=== PATIENT | male | born 1960 | race African-American/Black ===

== ENCOUNTER 2020-04-09 19:37 | Emergency (ER) | payer OTHER ==
[2020-04-09 20:03] VITALS: TEMP 98.8; BMI 19.3
--- NOTE | 2020-04-09 20:58 | PDOC ---
Attending Attestation - Resident Resident Name: Abhay Aguirre - ED Attending Attestation I have performed the following: I have examined & evaluated the patient, The case was reviewed & discussed with the resident, I agree w/resident's findings & plan - HPI HPI: 04/09/20 20:46 see resident hpi - Physicial Exam PE: 04/09/20 20:46 see resident exam - Critical Care Time Total Critical Care Time: 90 Critical Care Statement: The care of this patient involved high complexity decision making to prevent further life threatening deterioration of the patient's condition and/or to evaluate & treat vital organ system(s) failure or risk of failure. - Medical Decision Making 04/09/20 20:48 59-year-old male sent from [facility] for recent fall and evaluation of facial and arm pain Patient states he was seen at [facility] post fall but cannot remember which imaging was done He has abrasions to the right face on exam Plan for CT scan of the head cervical spine facial bones chest abdomen and pelvis for evaluation of possible traumatic injury Pending results will reevaluate for disposition 04/10/20 01:01CT scans revealed a displaced right lens adjacent to the retina Patient accepted to [facility] for ophthalmologic evaluation Discharge - Discharge Information Problems reviewed: Yes Clinical Impression/Diagnosis: Fall, Blurry vision, Eye pain, Lens dislocation Condition: Guarded Disposition: TRANSFER ACUTE CARE/OTHER HOSP - Follow up/Referral - Patient Discharge Instructions - Post Discharge Activity
--- NOTE | 2020-04-09 21:07 | PDOC ---
History of Present Illness - General Chief Complaint: Injury Stated Complaint: FALL Time Seen by Provider: 04/09/20 20:27 - History of Present Illness Initial Comments: 59 YOM no history presents with blurry vision, head and face pain, bilateral arm and leg pain since 4 days. Patient reports that 4 days prior to arrival he fell while walking down a flight of stairs. He fell 10 stairs, lost consciousness for one hour, woke up and screamed for help until someone called 911. He was brought to [facility]. Received Head CT and was subsequently discharged. Patient unsure of CT scan results. Does confirm that he received covid swab which he reports was negative. He reports that he is unable to care for himself due to pain. he is also unable to see from his right eye and finds it painful when he moves his eyes. He also reports some chills and diarrhea however denies N/V, cp, sob, fever, recent sick contacts or recent travel. No blood in urine, no blood in stool. Constitutional: No Weight Change, No Fever, + Chills, No Night Sweats, No Fatigue, No Malaise ENT/Mouth: No Hearing Changes, No Ear Pain, No Nasal Congestion, No Sinus Pain, No Hoarseness, No sore throat, No Rhinorrhea, No Swallowing Difficulty Eyes: + Eye Pain, + Swelling, + Redness, No Foreign Body, No Discharge, + Vision Changes Cardiovascular: No Chest Pain, No SOB, No PND, No Dyspnea on Exertion, No Orthopnea, No Claudication, No Edema, No Palpitations Respiratory: No Cough, No Sputum, No Wheezing, No Smoke Exposure, No Dyspnea Gastrointestinal: No Nausea, No Vomiting, + Diarrhea, No Constipation, No Pain, No Heartburn, No Anorexia, No Dysphagia, No Hematochezia, No Melena, No Flatulence, No Jaundice Genitourinary: No Dysmenorrhea, No DUB, No Dyspareunia, No Dysuria, No Urinary Frequency, No Hematuria, No Urinary Incontinence, No Urgency, No Flank Pain, No Urinary Flow Changes, No Hesitancy Musculoskeletal: + Arthralgias, + Myalgias, No Joint Swelling, No Joint Stiffness, + Back Pain, + Neck Pain, No Injury History Skin: No Skin Lesions, No Pruritis, No Hair Changes, No Breast/Skin Changes, No Nipple Discharge Neuro: + Weakness, No Numbness, No Paresthesias, + Loss of Consciousness, No Syncope, No Dizziness, No Headache, No Coordination Changes, No Recent Falls Psych: No Anxiety/Panic, No Depression, No Insomnia, No Personality Changes, No Delusions, No Rumination, No SI/HI/AH/VH, No Social Issues, No Memory Changes, No Violence/Abuse Hx., No Eating Concerns Heme/Lymph: No Bruising, No Bleeding, No Transfusions History, No Lymphadenopathy Endocrine: No Polyuria, No Polydipsia, No Temperature Intolerance Past History - Medical History Allergies/Adverse Reactions: Allergies Allergy/AdvReac Type Severity Reaction Status Date / Time No Known Allergies Allergy Verified 04/09/20 20:10 Home Medications: Ambulatory Orders NK [No Known Home Medication] 08/27/15 Anemia: No Asthma: No Cancer: No Cardiac Disorders: No CVA: No COPD: No CHF: No Dementia: No Diabetes: No GI Disorders: No Disorders: No HTN: No Hypercholesterolemia: No Kidney Stones: No Liver Disease: No Seizures: No Thyroid Disease: No - Surgical History Abdominal Surgery: No Appendectomy: No Cardiac Surgery: No Cholecystectomy: No Lung Surgery: No Neurologic Surgery: No Orthopedic Surgery: No - Reproductive History Testicular Surgery: No - Psycho-Social/Smoking History Smoking History: Current every day smoker Have you smoked in the past 12 months: Yes Number of Cigarettes Smoked Daily: 20 Information on smoking cessation initiated: No 'Breaking Loose' booklet given: 08/27/15 - Substance Abuse Hx (Audit-C & DAST Scrn) How often the patient has a drink containing alcohol: 2-4 times / month Number of drinks the patient has on a typical day: 5 or 6 How often the patient has six or more drinks on one occasion: Daily or almost daily Score: In Men: 4 or > Positive; In Women: 3 or > Positive: 8 Screen Result (Pos requires Nsg. Audit-10AR): Positive In the last yr the pt used illegal drug/Rx for NonMed reason: Yes Score: Yes response is considered Positive: 1 Screen Result (Positive result requires Nsg. DAST-10): Positive *Physical Exam - Vital Signs Last Vital Signs Temp Pulse Resp BP Pulse Ox 98.8 F 79 20 145/76 97 04/09/20 19:40 04/09/20 19:40 04/09/20 19:40 04/09/20 19:40 04/09/20 19:40 - Physical Exam General Appearance: Yes: Disheveled, Moderate Distress, Cachetic HEENT: positive: Other (patients right eye is red, pain with movement of right eye while tracking finger, decreased visual acuity in right eye, swelling, bruising and abrasions over right orbit and forehead) Neck: positive: Tender, Trachea midline, Normal Thyroid Respiratory/Chest: positive: Lungs Clear, Normal Breath Sounds Cardiovascular: positive: Regular Rhythm, Regular Rate, S1, S2 Gastrointestinal/Abdominal: positive: Normal Bowel Sounds, Tender, Flat, Soft Musculoskeletal: positive: Other (range of motion in right and left arms are limited by pain, 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 Reflexes 2+ in upper and lower extremity bilaterally, negative babinski) ED Treatment Course - LABORATORY CBC & Chemistry Diagram: 04/09/20 20:04 04/09/20 20:04 Medical Decision Making - Medical Decision Making 59 YOM no history presents 4 days after fall with blurry vision and diffuse MSK pain - vitals wnl - exam remarkable for decreased vision in right eye , pain with extraoccular movementls on right side, and diffuse msk pain in arms and legs bilaterally, as well as decreased metal sprayer machined parts strength limited by pain vs true neuro deficit - concern for orbital cellulitis vs retro orbital hematoma, fractures, spinal cord injury - will do cbc, cmp, CT head+ face+ neck+ chest/abdomen/pelvis, radiographs of left shoulder, arm, hip Discharge - Discharge Information Problems reviewed: Yes Clinical Impression/Diagnosis: Fall, Blurry vision, Eye pain Condition: Fair - Follow up/Referral - Patient Discharge Instructions - Post Discharge Activity
[2020-04-09 21:11] LABS: BASO % 0.6 % (0-2.0); EOS % 7.7 % (0-4.5); HEMATOCRIT 34.8 % (35.4-49); HEMOGLOBIN 11.4 GM/dL (11.7-16.9); LYMPH % 18.5 % (8-40); MCH 27.5 pg (25.7-33.7); MCHC 32.8 g/dl (32.0-35.9); MEAN CELL VOLUME 83.9 fl (80-96); MONO % 10.2 % (3.8-10.2); PLATELET COUNT 403 K/MM3 (134-434); RBC 4.15 M/mm3 (4.00-5.60); RDW 14.6 % (11.9-15.9); WHITE BLOOD COUNT 5.9 K/mm3 (4.0-10.0)
[2020-04-09 21:16] LABS: INR 0.93 (0.83-1.09)
[2020-04-09 21:18] LABS: ACTIVATED PTT 31.1 SECONDS (25.2-36.5)
[2020-04-09 21:53] LABS: ANION GAP 7 MMOL/L (8-16); BILIRUBIN,TOTAL 0.2 mg/dL (0.2-1); BLOOD UREA NITROGEN 13.8 mg/dL (7-18); CALCIUM 8.5 mg/dL (8.5-10.1); CHLORIDE 113 mmol/L (98-107); CO2 27 mmol/L (21-32); GLUCOSE,RANDOM 89 mg/dL (74-106); POTASSIUM 3.4 mmol/L (3.5-5.1); SGOT/AST 14 U/L (15-37); SGPT/ALT 16 U/L (13-61); SODIUM 147 mmol/L (136-145)
[2020-04-09] MEDS ORDERED: SODIUM CHLORIDE 1,000 ML IV STA (21:56)
[2020-04-09 22:11] LABS: ALK PHOS 69 U/L (45-117)
--- NOTE | 2020-04-09 23:53 | PDOC ---
ED Treatment Course - LABORATORY CBC & Chemistry Diagram: 04/09/20 20:04 04/09/20 20:04 - ADDITIONAL ORDERS Additional order review: Laboratory Results 04/09/20 04/09/20 04/09/20 20:04 20:04 20:04 PT with INR INR PTT (Actin FS) Sodium 147 H Potassium 3.4 L Chloride 113 H Carbon Dioxide 27 Anion Gap 7 L BUN 13.8 Creatinine 1.0 Est GFR (CKD-EPI)AfAm 94.39 Est GFR (CKD-EPI)NonAf 81.44 Random Glucose 89 Calcium 8.5 Total Bilirubin 0.2 AST 14 L ALT 16 Alkaline Phosphatase 69 Creatine Kinase 111 Troponin I < 0.02 Total Protein 6.0 L Albumin 3.0 L Alcohol, Quantitative < 3 Blood Type A POSITIVE Antibody Screen Negative 04/09/20 20:04 PT with INR 11.00 INR 0.93 PTT (Actin FS) 31.1 Sodium Potassium Chloride Carbon Dioxide Anion Gap BUN Creatinine Est GFR (CKD-EPI)AfAm Est GFR (CKD-EPI)NonAf Random Glucose Calcium Total Bilirubin AST ALT Alkaline Phosphatase Creatine Kinase Troponin I Total Protein Albumin Alcohol, Quantitative Blood Type Antibody Screen 04/09/20 20:04 RBC 4.15 MCV 83.9 MCHC 32.8 RDW 14.6 MPV 8.0 Neutrophils % 63.0 Lymphocytes % 18.5 Monocytes % 10.2 Eosinophils % 7.7 H Basophils % 0.6 - RADIOLOGY Radiology Studies Ordered: Category Date Time Status ABDOMEN & PELVIS CT WITH CONTR [CT] Stat CT Scan 04/09/20 22:[address] W/O CONTR [CT] Stat CT Scan 04/09/20 22:[address] WITH CONTRAST [CT] Stat CT Scan 04/09/20 22:[address] W/O CONTRAST [CT] Stat CT Scan 04/09/20 22:[address] WITH CONTRAST [CT] Stat CT Scan 04/09/20 22:20 Taken FOREARM- LEFT [RAD] Stat Radiology 04/09/20 20:29 Taken FOREARM- RIGHT [RAD] Stat Radiology 04/09/20 20:29 Taken SHOULDER-LEFT [RAD] Stat Radiology 04/09/20 20:29 Taken SHOULDER-RIGHT [RAD] Stat Radiology 04/09/20 20:29 Taken WRIST W/HAND-LEFT* [RAD] Stat Radiology 09/29/20 20:30 Taken WRIST W/HAND-RIGHT* [RAD] Stat Radiology 04/09/20 20:30 Taken DUPLEX VASCUL US-1 LEG [US] Stat Ultrasound 04/09/20 20:27 Completed - Medications Given in the ED: ED Medications Discontinued Medications Generic Name Dose Route Start Last Admin Trade Name Viktoria PRN Reason Stop Dose Admin Sodium Chloride 1,000 mls @ 1,000 mls/hr 04/09/20 21:56 04/09/20 23:06 Normal Saline - IV 04/09/20 22:55 1,000 mls/hr ASDIR STA Administration Medical Decision Making - Medical Decision Making 59 year old male BIBA to ED from detox intake for ETOH services, was found to have fallen x3 days ago down 10 stairs while intoxicated, and since complains of right eye field blurry vision. pt reported his main concern is getting a sandwich. Pt refused vision testing. Initial Vital Signs Temp Pulse Resp BP Pulse Ox 98.8 F 79 20 145/76 97 04/09/20 19:40 04/09/20 19:40 04/09/20 19:40 04/09/20 19:40 04/09/20 19:40 CT facial bones shows acute right lens dislocation. Pt needs optho consultation, will transfer to [facility]. Pt agreeable, but requesting food. Accepted by Dr. Randall (resident), under Dr. Byrnes (attending). 20/5 Left eye Right eye blurry, pt cannot make out anything on eye chart, cannot discriminate outlines, severely diminished, gross vision detected only. Discharge - Discharge Information Problems reviewed: Yes Clinical Impression/Diagnosis: Fall, Blurry vision, Eye pain, Lens dislocation Condition: Guarded Disposition: TRANSFER ACUTE CARE/OTHER HOSP - Admission No - Follow up/Referral - Patient Discharge Instructions - Post Discharge Activity - Transfer to Acute Care Facility Receiving Facility Name: [facility] Accepting Physician:: Fitz
[2020-04-10 01:03] VITALS: BP 174/90; PULSE 75
--- NOTE | 2020-04-10 11:07 | EKG ---
Test Reason : Blood Pressure : / mmHG Vent. Rate : 074 BPM Atrial Rate : 074 BPM P-R Int : 120 ms QRS Dur : 086 ms QT Int : 406 ms P-R-T Axes : 057 018 034 degrees QTc Int : 450 ms NORMAL SINUS RHYTHM MODERATE VOLTAGE CRITERIA FOR LVH, MAY BE NORMAL VARIANT BORDERLINE ECG NO PREVIOUS ECGS AVAILABLE Confirmed by MD Rosangela, Rafael ([id number]) on 04/10/2020 11:07:31 AM Referred By: Confirmed By:Rafael Adames MD
== END 2020-04-10 02:57 | disposition short-term general hospital (02) ==
LOC: JER 19:37
PROC: 3E0337Z Introduction of Electrolytic and Water Balance Substance into Peripheral Vein, Percutaneous Approach (ICD-10-PCS; principal; 2020-04-09)
DX: H53.8 Other visual disturbances (principal); T85.22XA Displacement of intraocular lens, initial encounter; S01.419A Laceration without foreign body of unspecified cheek and temporomandibular area, initial encounter
CPT/HCPCS: 36415; 70460-TC; 70486-TC; 71260-TC; 72125-TC; 73030-TC-LT-FY; 73030-TC-RT-FY; 73090-TC-LT-FY; 73090-TC-RT-FY; 73110-TC-LT-FY; 73110-TC-RT-FY; 73130-TC-LT-FY; 73130-TC-RT-FY; 74177-TC; 80053; 80307; 82550; 84484; 85025; 85610; 85730; 86850; 86900; 86901; 93005; 93010; 93971-TC; 99291; 99292; Q9967